=== PATIENT | male | born 1960 | race Caucasian/White ===

== ENCOUNTER 2017-11-23 20:35 | Emergency (ER) | payer OTHER, SELFPAY ==
[2017-11-23 20:36] VITALS: BP 146/84; PULSE 76; RESP 18; TEMP 36.8; O2SAT 95; BMI 42.7
--- NOTE | 2017-11-23 21:36 | RAD_ITS ---
STUDY: X-RAY - RIGHT TIBIA AND FIBULA REASON FOR EXAM: Male, 57 years old. Trauma TECHNIQUE: 4 view(s) of the tibia and fibula were obtained. COMPARISON: None. FINDINGS: There is evidence of previous ACL repair of the proximal tibia. Normal visualized fibula. The soft tissue structures are unremarkable. RAD/Tibia & Fibula 2 Views IMPRESSION: There is no evidence of tibial or fibular fracture or dislocation. Electronically Signed: Wisam Plasencia MD at 22:46 EDT , Service support ,
--- NOTE | 2017-11-23 21:50 | RAD_ITS ---
STUDY: X-RAY - UNILATERAL RIBS ( LEFT ) WITH CHEST REASON FOR EXAM: Male, 57 years old. Trauma TECHNIQUE - RIBS: 4 view(s) of the ribs. TECHNIQUE - CHEST: Single PA view of the chest. COMPARISON: Previous chest study of 01/23/2015 FINDINGS - RIBS: There are old healed fractures of the left sixth and seventh ribs. FINDINGS - CHEST: The lungs are clear and expanded. There is left costophrenic angle blunting, stable from the prior study of 01/23/2015. Normal size heart. Normal mediastinum and edwige. Normal visualized pulmonary arteries. Normal visualized aortic arch and descending thoracic aorta. There are diffuse degenerative changes of the visualized thoracic spine. The clavicles and shoulders are within normal limits. There is no demonstrated abnormality of the visualized soft tissue structures of the upper abdomen. RAD/Ribs Uni Min 3V w/PA Chest IMPRESSION: RIBS: Old healed fractures of the left sixth and seventh ribs. There is no evidence of acute rib fracture. CHEST: Stable left costophrenic angle blunting. Diffuse degenerative changes of the visualized thoracic spine. Electronically Signed: Wisam Plasencia MD at 22:52 EDT , Service support ,
[2017-11-23 23:04] LABS: International Normalized Ratio 1.9
--- NOTE | 2017-11-23 23:07 | ED.DCSUM_ITS ---
- ER Visit Summary Date of Service: 11/23/17 Chief Complaint: Fall History of Present Illness: The patient is a [address] Giovanny Velasco III. Reports that today he was walking through the yard and stepped in Arava hole. He fell and injured his right leg and chest. He is on Coumadin. He is adamant that he did not hit his head or have a loss of consciousness. He denies any neck, back, shoulder, wrist, or hip pain. Patient reports that he has left lower chest pain is 3 out of 10 severity. He has right leg pain is 3 out of 10 severity as well. Physical Examination: Vitals: Stable. Afebrile. Neck: No vertebral tenderness. Full ROM without difficulty. Cleared by NEXUS criteria. Back: No vertebral tenderness. General: A&O x 3. NAD. Cardiovascular exam: Regular rate and rhythm, no murmur, rub or gallop. Respiratory exam: Daughter tenderness palpation to the lower chest on the left. There is contusion present here. No crepitus. Clear to auscultation bilaterally. No wheezes or stridor. Abdominal exam: Soft, nontender, nondistended, normal bowel sounds. No pain in RUQ or LUQ specifically. No peritoneal signs. Extremity: Mild tenderness palpation to the distal third of his right leg. No swelling. He is neurovascular intact distal to this. No pain with range of motion. Test Results: INR is 1.9. Left rib series shows old healed sixth and seventh rib fractures. No acute fractures. Stable left costophrenic angle blunting. Right tib-fib x-ray shows no acute disease. Patient refused a CT of the head. Emergency Department Course and Treatment: Patient refused pain or nausea medications while here. Treatment Plan: Patient be discharged prescription for 12 Percocet. Instructed to follow-up Dr. Giovanny Velasco III in 1 week not improving. Return to the emergency department for any worsening symptoms. Disposition: To home in improved and stable condition. Impression: 1. Fall. 2. Right leg contusion. 3. Chest wall contusion. 4. Coumadin coagulopathy. This note was generated with [employer] software. It may contain incorrect words, spelling, and punctuation that were not noted in review of the chart prior to signing ED Disposition - Plan for ED Patient: Disposition: Home or Assisted Living Chief Complaint: Fall Instructions: ED Contusion Chest Wall Prescriptions: Oxycodone HCl/Acetaminophen [Percocet 5/325] 1 tablet PO Q6H PRN PRN 3 Days #12 tablet PRN Reason: Pain Referrals: Giovanny Velasco III, MD [Primary Care Provider] - 1 Week if not improving
[2017-11-23] MEDS: oxyCODONE 5 MG Tablet PO (23:24)
[2017-11-23 23:25] VITALS: RESP 18
== END 2017-11-23 23:25 | disposition home or self-care (01) ==
LOC: ED 21:52
PROVIDERS: Emergency Provider Emergency Medicine; Family Provider Family Medicine; PCP Family Medicine
DX: S80.11XA Contusion of right lower leg, initial encounter (principal); S20.212A Contusion of left front wall of thorax, initial encounter; W19.XXXA Unspecified fall, initial encounter; Y93.01 Activity, walking, marching and hiking; Y92.9 Unspecified place or not applicable; R79.1 Abnormal coagulation profile; T45.515A Adverse effect of anticoagulants, initial encounter; Z79.01 Long term (current) use of anticoagulants; E11.9 Type 2 diabetes mellitus without complications; E78.00 Pure hypercholesterolemia, unspecified; Z86.711 Personal history of pulmonary embolism; I48.91 Unspecified atrial fibrillation; Z85.01 Personal history of malignant neoplasm of esophagus; Z79.84 Long term (current) use of oral hypoglycemic drugs; Z79.899 Other long term (current) drug therapy
CPT/HCPCS: 71101; 73590; 85610; 99282

== ENCOUNTER 2019-04-25 20:44 | Emergency (ER) | payer OTHER, SELFPAY ==
[2019-04-25 20:45] VITALS: BP 159/102; PULSE 72; RESP 16; TEMP 36.6; O2SAT 98; BMI 42.5
--- NOTE | 2019-04-25 20:59 | ED.RN ---
PULLED OLD CARROLL FOR
--- NOTE | 2019-04-25 21:14 | EKG12_ITS ---
Test Reason : PALPS Blood Pressure : / mmHG Vent. Rate : 074 BPM Atrial Rate : 074 BPM P-R Int : 190 ms QRS Dur : 096 ms QT Int : 362 ms P-R-T Axes : 026 009 015 degrees QTc Int : 401 ms Sinus rhythm with Premature supraventricular complexes Otherwise normal ECG Confirmed by JENNIE BRYSON, STEPAN ([id number]), publication editor LIZZETTE SALDANA ([id number]) on 04/27/2019 10:50:24 AM Referred By: GUIDO Confirmed By:STEPAN SCHNEIDER MD
--- NOTE | 2019-04-25 21:20 | RAD_ITS ---
HISTORY: CHEST PAINPALPITATIONS EXAM: XR Chest 1 View: COMPARISON: November 23, 2017 FINDINGS: # of images incl. paperwork: 1 Left neck surgical clips remain Left aorta pulmonary window surgical clip remains. Obscuration of the left hemidiaphragm and left heart border is similar. Surgical clips below the left hemidiaphragm and at the region of the left side of the spine at the gastroesophageal junction are the same. Tortuosity descending thoracic aorta is the same Heart is not enlarged. Shoulder arthritis and thoracic spondylosis persist Pulmonary vascularity is distinct. Likely left pleural effusions. RAD/Chest 1 View (Portable) IMPRESSION: No change. Elevation of left hemidiaphragm with left basilar atelectasis and left pleural effusion and likely left lower lobe scarring. at 2139 Reported and signed by: Carroll Liu MD Electronically Signed: Carroll Liu MD at 21:38 EDT Tel , Service support ,
[2019-04-25 21:50] LABS: Absolute Lymphocyte Count 1.51 X10^3/uL (0.83-4.51); Absolute Neutrophil Count 3.6 X10^3/uL (2.0-7.7); Basophil# 0.07 X10^3/uL; Basophil% 1.1 % (0-1); Eosinophils% 3.2 % (0-5); Hematocrit 42.6 % (40-54); Hemoglobin 12.8 g/dL (13.0-16.5); Lymphocyte # 1.51 X10^3/ul (4.0); Lymphocyte % 24.5 % (19-41); Mean Corpuscular Hgb 23.8 pg (27.0-32.0); Mean Corpuscular Volume 79.2 fL (80-94); Mean Platelet Vol. 9.9 fl (6.2-12.0); Monocyte# 0.77 X10^3/uL; Monocyte% 12.5 % (0-10); NRBC Flagged by Analyzer 0 % (0-5); Neutrophil % 58.4 % (47-70); Platelet Count 264 K/mm3 (150-450); RBC Distribution Width CV 17.5 % (11.6-14.6); RBC Distribution Width SD 49.6 fl (35.1-43.9); Red Blood Count 5.38 M/mm3 (4.6-6.2); White Blood Count 6.2 K/mm3 (4.4-11.0)
[2019-04-25 21:52] VITALS: O2SAT 95
[2019-04-25 21:57] LABS: International Normalized Ratio 2.1; Prothrombin Time (Protime)PT. 23.3 SECONDS (11.7-14.9)
[2019-04-25 22:13] LABS: Anion Gap 5 (5-15); BUN 6 mg/dL (7-18); BUN/Creat Ratio 6.1 RATIO (10-20); Calcium,Total 8.6 mg/dL (8.5-10.1); Chloride 105 mmol/L (98-107); Creatinine, Serum 0.98 mg/dL (0.70-1.30); EST Glomerular Filtration Rate 84 mL/min (>60); Est Glom Filt Rate - Afr Amer 102 mL/min (>60); Estimated Creatinine Clearance 92.38 ml/min; Glucose 98 mg/dL (74-106); Sodium Level 140 mmol/L (136-145)
[2019-04-25] MEDS: Ondansetron 4 MG/2 ML Vial IV (22:25)
[2019-04-25 22:28] VITALS: PULSE 78; RESP 14
--- NOTE | 2019-04-25 22:41 | ED.VISSUMM ---
- ER Visit Summary Date of Service: 04/25/19 Chief Complaint: I feel ill History of Present Illness: The patient is a 58 M Who states that last week he began to feel ill. He states he pre-much slept all weekend. He has been feeling a little short of breath notes a cough with some sputum production he said low-grade temperatures around 99. states that sitting next to him she can hear him wheezing at times. He does have a history of pulmonary embolism and is on Coumadin. Also history of hypertension and A. fib. Went to urgent care and was told that he could be in A. fib and he should come to the emergency department which he did. Physical Examination: Afebrile vital signs stable Gen: Well-nourished well-developed Head: Normocephalic atraumatic Eyes: Perrl EOMI ENT: TMs clear no rhinorrhea moist mucous membranes Neck: Supple no lymphadenopathy no JVD nontender CVS: Regular rate rhythm no murmurs normal S1-S2 Respiratory: No distress Tory wheeze noted right base left mid lung field chest nontender Abdomen: Soft nontender nondistended normal bowel sounds no masses Back: Nontender Extremity: Nontender no edema Skin: Normal color no rash Neuro: alert orientated ?3 CN II-XII intact normal strength sensation Psych: Normal affect normal mood Test Results: Chest x-ray showed a left pleural effusion which has been seen before. EKG sinus rate of 74 with some PACs. White count is normal troponin negative INR 2.9. Emergency Department Course and Treatment: Patient was started on doxycycline. He received a breathing treatment here which she states helped significantly. He has albuterol at home. Patient to return if worsening or concerns. Impression: 1. Acute bronchitis with bronchospasm This note was generated with [employer] dictation software. It may contain incorrect words, spelling, and punctuation that were not noted in review of the chart prior to signing ED Disposition - Plan for ED Patient: Disposition: Home or Assisted Living Instructions: Acute Bronchitis Prescriptions: Doxycycline 100 mg PO BID #19 cap Prescription Printed Referrals: Giovanny Velasco III, MD [Primary Care Provider] - 3-5 Days if not improving
[2019-04-25] MEDS: Doxycycline 100 MG CAPSULE PO (23:02)
[2019-04-25 23:03] VITALS: BP 133/62; PULSE 84; RESP 17; O2SAT 98
== END 2019-04-25 23:08 | disposition home or self-care (01) ==
PROVIDERS: Emergency Provider Emergency Medicine; Family Provider Family Medicine; PCP Family Medicine
DX: J20.9 Acute bronchitis, unspecified (principal); I49.1 Atrial premature depolarization; I10 Essential (primary) hypertension; I48.91 Unspecified atrial fibrillation; J90 Pleural effusion, not elsewhere classified; E66.9 Obesity, unspecified; Z86.711 Personal history of pulmonary embolism; Z79.01 Long term (current) use of anticoagulants; Z79.899 Other long term (current) drug therapy
CPT/HCPCS: 71045; 80048; 84484; 85025; 85610; 93005; 94640; 96374; 99285; A4216; J2405

== ENCOUNTER → 2020-03-13 14:39 | Outpatient (CLI) | payer OTHER, SELFPAY ==
[2020-02-28 15:19] VITALS: BMI 42.8
--- NOTE | 2020-03-13 14:42 | ECHOCS_ITS ---
Reason For Study: PHTN Procedure This was a 2D Doppler, Color Flow transthoracic echocardiogram. The study was technically difficult. Contrast injection was performed. Exam performed in department. Left Ventricle Normal size and thickness. The estimated ejection fraction is 55 %. Unable to assess diastolic dysfunction due to arrhythmia. No regional wall motion abnormalities noted. Right Ventricle Moderately dilated right ventricle. Normal systolic function. Atria The left atrium is severely enlarged. The right atrium is severely enlarged. Normal atrial septum. Mitral Valve The mitral valve is structurally normal. No prolapse or stenosis seen. Tricuspid Valve Normal tricuspid valve. Trivial tricuspid valve insufficiency. Right ventricular systolic pressure estimated to be 32 mmHg. Aortic Valve Trisinus/trileaflet aortic valve. Mild diffuse aortic valve thickening. Mild focal aortic valve thickening. There is no aortic stenosis. Pulmonic Valve The pulmonic valve is not well visualized. Great Vessels Normal aortic root. Normal arch. Normal inferior vena cava. Inferior vena cava collapse with sniff. Pericardium/Pleural No pericardial effusion. Medication 22 gauge I.V. with prn adaptor inserted into right arm. Diluted definity 6.0ml given slow IV push to enhance endocardial definition. MMode/2D Measurements & Calculations LVIDd: 4.4 cm IVSd: 0.91 cm Ao root diam: 3.5 cm LVIDs: 3.6 cm LVPWd: 1.0 cm RVDd: 4.8 cm FS: 19.2 % LAV(MOD-bp): 88.3 ml LA A4 area: 29.9 cm2 LA dimension(2D): 3.7 cm LAV(MOD-bp) Indexed: 34.1 ml/m2 LAV(MOD-sp2): 71.0 ml LAV(MOD-sp4): 107.5 ml RA A4 area: 27.4 cm2 Time Measurements MV dec time: 0.23 sec Doppler Measurements & Calculations MV E max eloina: 84.6 cm/sec Ao V2 max: 96.7 cm/sec LV V1 max: 83.5 cm/sec Ao max P.8 mmHg LV V1 max P.8 mmHg PA V2 max: 79.7 cm/sec TR max eloina: 208.1 cm/sec TR max P.3 mmHg Interpretation Summary The estimated ejection fraction is 55 %. Unable to assess diastolic dysfunction due to arrhythmia. Moderately dilated right ventricle. Trivial tricuspid valve insufficiency. Right ventricular systolic pressure estimated to be 32 mmHg. Patient appears to be in atrial fibrillation The study was technically difficult. Contrast injection was performed. There is no comparison study available. Ordering Physician: David Villalpando Referring Physician: PRITESH BOWMAN Performed By: Megan Thomson, RADHA, RVT
== END ==
LOC: CVS 14:42
PROVIDERS: PCP Family Medicine; Referring Provider Internal Medicine Cardiovascular Disease; Visit Provider Internal Medicine Cardiovascular Disease
DX: I48.0 Paroxysmal atrial fibrillation (principal); R55 Syncope and collapse; Z86.711 Personal history of pulmonary embolism; Z86.718 Personal history of other venous thrombosis and embolism
CPT/HCPCS: 93306; Q9957; A4216; C8929

== ENCOUNTER → 2020-03-30 12:18 | Outpatient (CLI) | payer OTHER, SELFPAY ==
[2020-02-28 15:19] VITALS: BMI 42.8
--- NOTE | 2020-03-30 12:19 | STE_ITS ---
Reason For Study: Atrial Fibrillation Stress Results Protocol: Maikel Protocol Maximum Predicted HR: 163 bpm Target HR: 139 bpm % Maximum Predicted HR: 113 % Heart Stage Duration Rate BP Comment (mm:ss) (bpm) Baseline 84 130/72No Chest Pain; Unable To Use Definity D/T Previous Reaction Maikel Protocol 3:00 162 146/72No Chest Pain; Mild Dyspnea Stage I Maikel Protcol Stage II 2:01 184 140/68No Chest Pain; Moderate Dyspnea No Chest Pain; EKG Module Malfunctioned At Beginning Of Recovery 96 114/70Recovery; Echo Images Obtained Without EKG; EKG Resumed At 1 Min 30 Secs Into Recovery Stress Duration: 5:01 mm:ss Maximum Stress HR: 184 bpm METS: 7 Baseline Echocardiogram Findings The estimated ejection fraction is 55 %. Stress Echo Wall motion Data Resting WM Intermediate WM Stress WM Resting Wall Motion Wall Motion Stress No regional wall motion No regional wall motion abnormalities noted. abnormalities noted. EKG Data Atrial fibrillation with controlled ventricular response. The patient exercised according to the regular Maikel protocol for a total duration of 5:01. The maximum heart rate attained was 210 beats per minute. This was 128% of maximum predicted heart rate. The patient exercised into stage 2 of the Maikel protocol. During stress, there were no ST or T wave changes noted to suggest ischemia. No clinical angina was noted. Interpretation Summary The estimated ejection fraction is 55 %. Normal, adequate, treadmill echocardiogram. Negative for ischemia by EKG and echocardiographic criteria. No anginal symptoms noted. Baseline atrial fibrillation with no additional arrhythmias noted. Below average exercise capacity for age. Appropriate blood pressure response to exercise. Test terminated with attainment target heart rate and dyspnea. Final LVEF is 75%. No complications. Ordering Physician: David Villalpando Referring Physician: Giovanny Velasco III Performed By: Yary Olmstead, RADHA, RVT
== END ==
PROVIDERS: PCP Family Medicine; Referring Provider Internal Medicine Cardiovascular Disease; Visit Provider Internal Medicine Cardiovascular Disease
DX: I48.0 Paroxysmal atrial fibrillation (principal); Z86.711 Personal history of pulmonary embolism; Z86.718 Personal history of other venous thrombosis and embolism; Z79.01 Long term (current) use of anticoagulants; I10 Essential (primary) hypertension; E78.5 Hyperlipidemia, unspecified
CPT/HCPCS: 93017; 93350

== ENCOUNTER 2020-04-07 23:34 | Emergency (ER) | payer OTHER, SELFPAY ==
[2020-02-28 15:19] VITALS: BMI 42.8
[2020-04-07 23:35] VITALS: BP 144/88; PULSE 93; RESP 18; TEMP 36.3; BMI 42.8
[2020-04-07 23:37] VITALS: BP 144/88; PULSE 93; RESP 18; TEMP 36.3
--- NOTE | 2020-04-07 23:46 | ED.VISSUMM ---
- ER Visit Summary Date of Service: 04/07/20 Chief Complaint: Fall, right wrist pain History of Present Illness: The patient is a [address] Giovanny Velasco iii. He was formerly a patient of Dr. Carter. He has a history of atrial fibrillation and PE. He is on Coumadin. He has not had his level checked for a long time. Patient reports that this evening he tripped over some plastic in the garage and injured his right wrist. He states he has pain Zeta 10 severity. He is left-hand dominant. He is adamant that he did not hit his head. No loss of consciousness. He denies any neck pain. He reports that he has pain to his tailbone that is 2 out of 10 in severity. He denies any shoulder, hip, or left wrist pain. Physical Examination: Vitals: Stable. Afebrile. Neck: No vertebral tenderness. Full ROM without difficulty. Cleared by NEXUS criteria. Back: No vertebral tenderness. General: A&O x 3. NAD. Cardiovascular exam: Irregular rhythm, no murmur, rub or gallop. Respiratory exam: Chest nontender. No crepitus. Clear to auscultation bilaterally. No wheezes or stridor. Abdominal exam: Soft, nontender, nondistended, normal bowel sounds. No pain in RUQ or LUQ specifically. No peritoneal signs. Extremity: Moderate tenderness palpation to the wrist on the right. He is neurovascular intact distal this. He has no pain proximal to this. No pain over his shoulders or hips. Test Results: X-ray shows a nondisplaced scaphoid fracture. Emergency Department Course and Treatment: Patient was given a dose of fentanyl IM. He is resting more comfortably. He was given Percocet p.o. He was placed in an Ortho-Glass thumb spica splint. Treatment Plan: Patient will be discharged with Percocet. Instructed to follow-up with Dr. Davalos in 1 week for another exam. Return to the emergency department for any worsening symptoms. Disposition: To home in improved and stable condition. Impression: 1 1. Fall. 2. Coumadin coagulopathy. 3. Right scaphoid fracture. 4. Ortho-Glass thumb spica splint, fabricated. This note was generated with [employer] software. It may contain incorrect words, spelling, and punctuation that were not noted in review of the chart prior to signing ED Disposition - Plan for ED Patient: Instructions: ED Fx Wrist Navicular Conf Prescriptions: Oxycodone HCl/Acetaminophen [Percocet 5/325] 1 tablet PO Q6H PRN PRN 5 Days #20 tablet PRN Reason: Pain Score 6-10/10 Referrals: Pravin Davalos DO [STAFF PHYSICIAN] - 1 Week
[2020-04-08] MEDS: fentaNYL 100 MCG/2 ML Ampul 50 MCG IM
--- NOTE | 2020-04-08 00:20 | RAD_ITS ---
STUDY: X-RAY - RIGHT WRIST REASON FOR EXAM: Male, 59 years old. Posterior wrist pain after fall on outstretched arm. TECHNIQUE: 3 view(s) of the wrist were obtained. COMPARISON: None. FINDINGS: Oblique minimally displaced fracture distal metadiaphysis of the radius. Ulna is normal. Nondisplaced fracture waist of the scaphoid. There is soft tissue swelling dorsum of the wrist. RAD/Wrist min 3 Views IMPRESSION: Fracture distal radius. Nondisplaced fracture of the scaphoid. Electronically Signed: Joaquin Mercado MD at 1:09 EDT , Service support ,
[2020-04-08 00:25] LABS: Prothrombin Time (Protime)PT. 22.4 SECONDS (11.7-14.9)
[2020-04-08] MEDS: oxyCODONE 5 MG Tablet 10 MG PO (01:07)
[2020-04-08 01:13] VITALS: BP 146/78; PULSE 79; RESP 18; O2SAT 97
== END 2020-04-08 01:14 | disposition home or self-care (01) ==
PROVIDERS: Emergency Provider Emergency Medicine; PCP Family Medicine
DX: S62.001A Unspecified fracture of navicular [scaphoid] bone of right wrist, initial encounter for closed fracture (principal); D68.32 Hemorrhagic disorder due to extrinsic circulating anticoagulants; T45.515A Adverse effect of anticoagulants, initial encounter; W18.09XA Striking against other object with subsequent fall, initial encounter; Y93.9 Activity, unspecified; Y92.9 Unspecified place or not applicable; I10 Essential (primary) hypertension; K21.9 Gastro-esophageal reflux disease without esophagitis; E11.9 Type 2 diabetes mellitus without complications; I48.0 Paroxysmal atrial fibrillation; K58.9 Irritable bowel syndrome, unspecified; E78.00 Pure hypercholesterolemia, unspecified; Z85.01 Personal history of malignant neoplasm of esophagus; Z86.711 Personal history of pulmonary embolism; Z79.01 Long term (current) use of anticoagulants; Z79.84 Long term (current) use of oral hypoglycemic drugs; Z79.899 Other long term (current) drug therapy
CPT/HCPCS: 29125; 73110; 85610; 96372; 99283; A4216

== ENCOUNTER → 2021-05-03 | Outpatient (CLI) | payer OTHER, SELFPAY ==
[2021-05-03 13:23] LABS: International Normalized Ratio 2.2; Prothrombin Time (Protime)PT. 23.7 SECONDS (11.7-14.9)
== END | disposition home or self-care (01) ==
LOC: LABSPEC 12:58
PROVIDERS: PCP Family Medicine; Referring Provider Family Medicine; Visit Provider Family Medicine
DX: I48.0 Paroxysmal atrial fibrillation (principal); I26.99 Other pulmonary embolism without acute cor pulmonale
CPT/HCPCS: 85610

== ENCOUNTER 2022-05-01 18:43 | Emergency (ER) | payer OTHER, SELFPAY ==
[2022-05-01 18:43] VITALS: BP 158/101; PULSE 85; RESP 16; TEMP 36.4; O2SAT 100; BMI 37.5
[2022-05-01 18:45] VITALS: BP 158/101; PULSE 85; RESP 16; TEMP 36.4; O2SAT 100
--- NOTE | 2022-05-01 19:18 | CT_ITS ---
STUDY: CT Abdomen And Pelvis W/O Contrast Injection 05/01/2022 8:01 PM REASON FOR EXAM: Male, 61 years old. ABDOMINAL PAIN Kidney Stone Technologist Notes Left flank pain, diarrhea x1 week. Hematuria, history of esophageal cancer. TECHNIQUE: Transaxial images were obtained without oral contrast, and without intravenous contrast. Individualized dose optimization techniques were used for this CT. COMPARISON: None. FINDINGS: The visualized lung bases are unremarkable. The visualized portions of the heart are within normal limits. Unremarkable liver. There are multiple gallstones. Unremarkable spleen. There is diffuse atrophy of the pancreas. Unremarkable bilateral adrenal glands. 10.6cm cyst of the superior left kidney. This is 10 HU. There is an adjacent 5 cm cyst of the inferior left kidney that is 1 HU. No follow-up required. There are multiple liver cysts which are simple of the left kidney. There is a 10 mm hypodensity in the inferior right kidney. These are consistent for cysts. No follow up required. Mild hydronephrosis caused by left 3.4 mm UVJ stone. There is also a nonobstructive stone in the distal left distal ureter measuring 2.3 mm. There is a small hiatal hernia. Unremarkable small intestine. There are multiple colonic diverticula consistent with diverticulosis. There is a duodenal diverticulum. This is near the pancreatic head. The appendix is visualized and appears unremarkable. There are no acute findings of the abdominal aorta. Unremarkable inferior vena cava. Subcentimeter mesenteric lymph nodes. Unremarkable urinary bladder. Laminectomy changes. There is bilateral neural foraminal stenosis at L4-5 and L5-S1. Spinal fixation hardware noted in the lower lumbar spine. There is a left-sided inguinal hernia containing adipose tissue. There are diffuse degenerative changes of the visualized lumbar spine. Degenerative findings of the hips. CT/Abdomen/Pelvis without Cont IMPRESSION: (NOT LISTED IN ORDER OF SIGNIFICANCE) There are multiple colonic diverticula consistent with diverticulosis. There is a duodenal diverticulum. This is near the pancreatic head. Mild hydronephrosis caused by left 3.4 mm UVJ stone. There is also a nonobstructive stone in the distal left distal ureter measuring 2.3 mm. There are multiple gallstones. Other findings as above. Electronically Signed: Paco Smith MD at 20:15 EDT ,
[2022-05-01] MEDS: 0.9% Normal Saline 1,000 ML 250 ML IV (19:34)
--- NOTE | 2022-05-01 19:34 | EDS_ITS ---
HPI History of Present Illness Chief Complaint: Abd Pain Detail of Chief Complaint: Left flank pain, presently left lower quadrant pain and dark urine Informant: patient and spouse/S.O. Onset/Context/Timing Onset: Today and Hours Context: Sudden Onset Timing: Continuous and Waxes and wanes Quality: Achy Location: Initially left flank now left lower quadrant Current Severity: Mild Maximum Severity: Severe Worsened by: Nothing Relieved by: Nothing Associated Symptoms Associated Symptoms: Nausea and vomiting and increase in chronic diarrhea Narrative Narrative: Patient is a 61-year-old male with history of esophageal cancer, paroxysmal atrial fibrillation, pulmonary embolus, long-term use of anticoagulant, diabetes mellitus type 2, hyperlipidemia who presents with nausea, vomiting and diarrhea that started a couple of days ago. The diarrhea is more than normal. He has history of dumping syndrome. Today he vomited several times after he had abrupt onset of left flank pain. The pain is now located in the left lower quadrant. There is no history of diverticulosis or diverticulitis. He denies scrotal pain or swelling. He does report dark-colored urine. He has no history of liver disease. There is no history of pancreatitis. He occasionally will have an alcoholic beverage. Patient denies fever, chills night sweats. He has no HEENT symptoms. He has no cardiac symptoms. He has no respiratory symptoms. Prior similar symptoms: No Recent Illness/Hospitalization: No [facility] Medical History (Updated 05/01/22 @ 20:[address] Branden Kuhn MD) Adenocarcinoma of esophagus (2009) Barretts esophagus Congenital tracheoesophageal fistula, esophageal atresia and stenosis Diabetes mellitus, type II Essential hypertension GERD (gastroesophageal reflux disease) History of DVT of lower extremity History of pulmonary embolism (01/24/15) Hyperlipidemia correction current use of anticoagulant Obesity Paroxysmal atrial fibrillation Statin intolerance Syncope Home Medications metoprolol tartrate 25 mg tablet 25 mg PO BID #60 tabs 01/24/15 [Rx Last Taken Unknown] lisinopril 10 mg tablet 10 mg PO DAILY 09/12/16 [History Last Taken Unknown] warfarin 5 mg tablet 5 mg PO MOTUWETHFRSA 09/12/16 [History Last Taken Unknown] warfarin 2.5 mg tablet 2.5 mg PO [place]G 11/23/17 [History Last Taken Unknown] albuterol sulfate 90 mcg/actuation aerosol inhaler (ProAir HFA) 2 puff inhalation Q6H PRN 07/04/19 [History Last Taken Unknown] furosemide 40 mg tablet 40 mg PO DAILY 07/04/19 [History Last Taken Unknown] glimepiride 1 mg tablet 1 mg PO QAM 07/04/19 [History Last Taken Unknown] pioglitazone 30 mg tablet (Actos) 30 mg PO DAILY 07/04/19 [History Last Taken Unknown] gemfibrozil 600 mg tablet 600 mg PO BID #60 tabs 02/28/20 [Rx Last Taken Unknown] oxycodone-acetaminophen 5 mg-325 mg tablet 1 tab PO Q6H PRN PRN pain 5 days #20 TABLETS 05/01/22 [Rx Last Taken Unknown] Allergy/AdvReac Type Severity Reaction Status Date / Time adhesive Allergy Rash Verified 05/01/22 18:45 latex Allergy Rash Verified 05/01/22 18:45 onion Allergy Food Verified 05/01/22 18:45 Allergy atorvastatin [From Lipitor] AdvReac Intermediate Myalgias Verified 05/01/22 18:45 Rivhivo-VPN-OyO Reductase AdvReac Intermediate myalgias Verified 05/01/22 18:45 Inhibitor [Naqafwn-Ifg-Ixa Reductase Inhibitor] codeine AdvReac Unknown unknown Verified 05/01/22 18:45 metformin AdvReac Nausea/Vom/ Verified 05/01/22 18:45 Diarrhea perflutren [From Definity] AdvReac Nausea Verified 05/01/22 18:45 BANDAIDS Allergy Rash Uncoded 05/01/22 18:45 Family History Mother Thyroid disorder Paige's palsy Father CAD (coronary artery disease) Hypertension CVA (cerebral vascular accident) Brother Hepatitis C Sister Thyroid disorder Brother Thyroid disorder Surgical History History of colonoscopy (08/31/09) History of esophagectomy History of esophagogastroduodenoscopy (EGD) History of laminectomy History of left inguinal hernia repair History of tonsillectomy Social History (Updated 05/01/22 @ 19:[address] Branden Kuhn MD) household members: spouse Smoking Status: Former smoker quit date: 08/03/91 pack-years: 5 alcohol intake: current alcohol intake frequency: holidays/special occasions only substance use type: does not use ROS ROS ED Constitutional Constitutional ED: Denies chills, fever(s), subjective, sweats or weight loss Eyes Eyes: Denies blurry vision, change in vision or diplopia ENT ENT ED: Denies ear pain, rhinorrhea or sore throat Cardiovascular Cardiovascular: Denies chest pain, orthopnea, palpitations, paroxysmal nocturnal dyspnea or racing heartbeat Respiratory/Chest Respiratory/Chest: Denies cough, dyspnea, dyspnea on exertion, orthopnea, paroxysmal nocturnal dyspnea or sputum Gastrointestinal Gastrointestinal: Reports abdominal pain, diarrhea, nausea and vomiting; Denies constipation or melena Genitourinary Genitourinary ED: Reports hematuria; Denies dysuria or urinary frequency Musculoskeletal Musculoskeletal: Reports back pain; Denies arthralgias, myalgias or neck pain Integumentary Denies abscess, Abrasions or rash Neurologic Neurologic: Denies headache(s), paresthesias or weakness Endocrine Endocrinology: Denies cold intolerance, heat intolerance, polydipsia, polyphagia or polyuria Hematologic/Lymphatic Hematologic/Lymphatic: Reports systems reviewed and no addt'l complaints, except as documented and easy bruising; Denies easy bleeding Allergic/Immunologic Allergic/Immunologic ED: Denies mouth swelling, tongue swelling or urticaria EXAM Physical Exam Const Vital Signs: 05/01/22 18:43 05/01/22 18:45 05/01/22 20:35 Temperature 97.6 F L 97.6 F L Temperature Source Temporal Temporal Pulse Rate 85 85 88 Respiratory Rate 16 16 16 Blood Pressure 158/101 H 158/101 H 137/100 H Blood Pressure Mean 120 120 112 Pulse Ox 100 100 92 Oxygen Delivery Method Room Air Room Air Room Air Positive well nourished and well developed General Appearance ED: well developed and NAD; Negative for cyanotic, diaphoretic or pallor HEENT Denies moist mucous membranes Negative for trauma or tenderness Eyes PERRL and EOMs intact bilaterally General Eye ED: Negative for pale conjunctiva or scleral icterus Neck no lymphadenopathy, supple and no JVD Resp normal respiratory effort and clear to auscultation bilaterally Cardio regular rate, regular rhythm, S1 normal heart sound, S2 normal heart sound and no murmurs GI normal to inspection, nondistended, normoactive bowel sounds, non-tender and no masses; Negative for hepatosplenomegaly Auscultation: normoactive bowel sounds Palpation: soft Back/Spine no CVA tenderness Cervical Spine: Negative for cervical spine tenderness Thoracic Spine / Upper Back: Negative for thoracic spinal tenderness Lumbar Spine / Lower Back: Negative for lumbar spinal tenderness Extremity Extremity Narrative: Patient has absent of hair legs and toes. There is palpable DP and PT pulse on the right. There is no palpable pulse on the left. Cap refill is normal. General Extremety ED: Yes edema; Negative for tenderness General Extremity: edema Neuro oriented x3, CN's II-XII intact bilaterally and no sensory deficits noted Sensorium / Orientation: alert Motor Exam: strength 5/5 throughout Skin no rashes or lesions noted and No no wounds General Skin Exam: Negative for jaundice or pallor Trauma: abrasion MDM MDM MDM Narrative Medical decision making narrative: With abrupt onset of flank pain with nausea and vomiting suspect patient has an obstructing ureteral stone. Will obtain UA to assess for infection. CT of the abdomen pelvis with out contrast was ordered to assess if patient does have an obstructing ureteral stone. Since he has multiple medical problems CBC was obtained assess white count rule out anemia. Basic metabolic panel to assess renal function as well as glucose since he is diabetic. He declined pain medicine. He states the pain is much less severe than it was this morning. Lab Data Attestation: I reviewed the patient's lab results. Lab results narrative: White count is elevated with demargination. There is no bandemia. Suspect this is due to pain. Basic metabolic panel is unremarkable. Urine is remarkable for red cells without evidence of infection. Patient was referred to urology. Labs: Laboratory Results - last 24 hr 05/01/22 05/01/22 05/01/22 19:10 19:25 19:25 WBC 13.6 H RBC 5.97 Hgb 14.7 Hct 47.1 MCV 78.9 L MCH 24.6 L MCHC 31.2 L RDW Std Deviation 50.0 H RDW Coeff of Jie 18.2 H Plt Count 280 MPV 10.2 Immature Gran % (Auto) 0.400 Neut % (Auto) 82.4 H Lymph % (Auto) 9.5 L [place] % (Auto) 6.5 Eos % (Auto) 0.6 Baso % (Auto) 0.6 Absolute Neuts (auto) 11.2 H Absolute Lymphs (auto) 1.29 Nucleated RBC % 0 Sodium 137 Potassium 4.4 Chloride 102 Carbon Dioxide 29.0 Anion Gap 6 BUN 18 Creatinine 1.12 Estim Creat Clear Calc 77.95 Est GFR (MDRD) Af Amer 86 Est GFR (MDRD) Non-Af 71 BUN/Creatinine Ratio 16.1 Glucose 129 H Calcium 9.1 Urine Color Adrianna Urine Clarity Sl. Cloudy Urine pH 6.0 Ur Specific [place] 1.010 Urine Protein 30 H Urine Glucose (UA) Normal Urine Ketones Negative Urine Occult Blood 250 H Urine Nitrite Negative Urine Bilirubin Negative Urine Urobilinogen Normal Ur Leukocyte Esterase 100 H Urine RBC 10-25 SEEN Urine WBC 0-5 SEEN Ur Squamous Epith Cells 0 SEEN Urine Bacteria RARE Urine Mucus 0 SEEN Radiography Diagnostic Testing: Clinical Impression(s) from Imaging Studies Abdomen/Pelvis CT 05/01/22 19:18 IMPRESSION: (NOT LISTED IN ORDER OF SIGNIFICANCE) There are multiple colonic diverticula consistent with diverticulosis. There is a duodenal diverticulum. This is near the pancreatic head. Mild hydronephrosis caused by left 3.4 mm UVJ stone. There is also a nonobstructive stone in the distal left distal ureter measuring 2.3 mm. There are multiple gallstones. Other findings as above. Electronically Signed: Paco Smith MD at 20:15 EDT , Discharge Plan Triage Chief Complaint: Abd Pain ED Provider: Branden Kuhn Dx/Rx/DC Orders Clinical Impression: Hydronephrosis with urinary obstruction due to ureteral calculus, Diabetes mellitus, type II, correction current use of anticoagulant Instructions: ED Kidney Stone w/ Colic Prescriptions: New oxycodone-acetaminophen [oxycodone-acetaminophen] 5-325 mg tablet 1 tab PO Q6H PRN PRN (Reason: pain) 5 Days Qty: 20 0RF No Action pioglitazone [Actos] 30 mg tablet 30 mg PO DAILY glimepiride 1 mg tablet 1 mg PO QAM furosemide 40 mg tablet 40 mg PO DAILY albuterol sulfate [ProAir HFA] 90 mcg/actuation HFA aerosol inhaler 2 puff INHALATION Q6H PRN gemfibrozil 600 mg tablet 600 mg PO BID Qty: 60 11RF metoprolol tartrate 25 MG tablet 25 mg PO BID Qty: 60 0RF lisinopril 10 MG tablet 10 mg PO DAILY warfarin 5 MG tablet 5 mg PO MOTUWETHFRSA warfarin 2.5 MG tablet 2.5 mg PO [place] Stand Alone Forms: ED Work / School Excuse Primary Care Provider: Care Physician,No Primary Referrals: Angel Mauricio MD [Med Staff - Active Staff] - 5-7 Days Care Physician,No Primary [Primary Care Provider] -
[2022-05-01 19:37] LABS: Mucous, Urine 0 SEEN /hpf (<or=2+); Squamous Epithelial Cells - UA 0 SEEN /hpf (0-5)
[2022-05-01 19:38] LABS: Color, Urine Amber (Yellow); Glucose, Dipstick Normal (Normal); Ketone-Dipstick Negative (Negative); Leukocyte Esterase-Dipstick 100 /ul (Negative); Nitrite-Dipstick Negative (Negative); Occult Blood-Urine 250 /ul (Negative); Protein-Dipstick 30 mg/dl (Negative); Urine Bilirubin Dipstick Negative (Negative); Urine Clarity Sl. Cloudy (Clear); Urine Urobilinogen Normal (Normal)
[2022-05-01 19:39] LABS: Absolute Lymphocyte Count 1.29 X10^3/uL (0.83-4.51); Absolute Neutrophil Count 11.2 X10^3/uL (2.0-7.7); Basophil# 0.08 X10^3/uL; Basophil% 0.6 % (0-1); Eosinophil# 0.08 X10^3/uL; Eosinophils% 0.6 % (0-5); Hematocrit 47.1 % (40-54); Hemoglobin 14.7 g/dL (13.0-16.5); Lymphocyte # 1.29 X10^3/ul (0.83-4.51); Lymphocyte % 9.5 % (19-41); Mean Corp Hgb Conc 31.2 g/dL (32-36); Mean Corpuscular Hgb 24.6 pg (27.0-32.0); Mean Corpuscular Volume 78.9 fL (80-94); Mean Platelet Vol. 10.2 fl (6.2-12.0); Monocyte# 0.88 X10^3/uL; Monocyte% 6.5 % (0-10); NRBC Flagged by Analyzer 0 % (0-5); Neutrophil # 11.22 X10^3/uL (2.7-7.7); Neutrophil % 82.4 % (47-70); Platelet Count 280 K/mm3 (150-450); RBC Distribution Width CV 18.2 % (11.6-14.6); Red Blood Count 5.97 M/mm3 (4.6-6.2); White Blood Count 13.6 K/mm3 (4.4-11.0)
[2022-05-01 19:44] LABS: Bacteria RARE /hpf (None Seen); Red Blood Cells-Urine 10-25 SEEN /hpf (0-5); White Blood Cells 0-5 SEEN /hpf (0-5)
[2022-05-01 19:52] LABS: Anion Gap 6 (5-15); BUN 18 mg/dL (7-18); BUN/Creat Ratio 16.1 RATIO (10-20); Calcium,Total 9.1 mg/dL (8.5-10.1); Chloride 102 mmol/L (98-107); Creatinine, Serum 1.12 mg/dL (0.70-1.30); EST Glomerular Filtration Rate 71 mL/min (>60); Est Glom Filt Rate - Afr Amer 86 mL/min (>60); Estimated Creatinine Clearance 77.95 ml/min; Glucose 129 mg/dL (74-106); Potassium 4.4 mmol/L (3.5-5.1); Sodium Level 137 mmol/L (136-145)
[2022-05-01 20:35] VITALS: BP 137/100; PULSE 88; RESP 16; O2SAT 92
[2022-05-01 21:08] VITALS: BP 124/69; PULSE 84; RESP 16; O2SAT 97
== END 2022-05-01 21:12 | disposition home or self-care (01) ==
LOC: ED 19:11
PROVIDERS: Emergency Provider Emergency Medicine; Visit Provider Emergency Medicine
DX: N13.2 Hydronephrosis with renal and ureteral calculous obstruction (principal); I48.0 Paroxysmal atrial fibrillation; E11.9 Type 2 diabetes mellitus without complications; I10 Essential (primary) hypertension; E78.5 Hyperlipidemia, unspecified; Z87.891 Personal history of nicotine dependence; Z79.01 Long term (current) use of anticoagulants; Z86.711 Personal history of pulmonary embolism; Z85.01 Personal history of malignant neoplasm of esophagus; Z86.718 Personal history of other venous thrombosis and embolism; K21.9 Gastro-esophageal reflux disease without esophagitis; E66.9 Obesity, unspecified; Z79.899 Other long term (current) drug therapy; Z79.84 Long term (current) use of oral hypoglycemic drugs; Z68.37 Body mass index [BMI] 37.0-37.9, adult
CPT/HCPCS: 74176; 80048; 81001; 85025; 96360; 96361; 99282; J7030; A4216